=== PATIENT | female | born 2000 | race Two or more races ===

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

== ENCOUNTER → 2022-12-14 | Emergency (ER) | payer OTHER ==
[~2022-12-14] VITALS: Ht 152.4 cm; Wt 63.5 kg
== END | disposition left against medical advice (07) ==
LOC: ER 12:15
DX: R10.13 Epigastric pain (principal)